=== PATIENT | female | born 1960 | race Caucasian/White ===

== ENCOUNTER 2016-07-23 12:21 | Emergency (ER) | payer OTHER ==
[~2016-07-23] VITALS: Ht 175.3 cm; Wt 72.6 kg
[2016-07-23 12:39] VITALS: BP 151/92
[2016-07-23] MEDS ORDERED: ACETAMINOPHEN EXTRA STRENGTH 500 MG TAB PO ONE ×3 (12:45→17:35)
--- NOTE | 2016-07-23 12:51 | NUR ---
PT TAKEN TO RADIOLOGY VIA W/C BY TECH.
[2016-07-23] MEDS ORDERED: ACETAMINOPHEN EXTRA STRENGTH 500 MG TAB ONE (12:54)
[2016-07-23] MEDS ORDERED: NACL 0.9% 1,000 ML IV SCH (17:31)
[2016-07-23] MEDS ORDERED: IBUPROFEN 600 MG TAB PO ONE (17:35)
[2016-07-23] MEDS ORDERED: HYDROmorphone 1 MG/ML AMP IVP ONE (17:35)
[2016-07-23] MEDS ORDERED: ONDANSETRON 4 MG/2 ML VIAL IVP ONE (17:35)
--- NOTE | 2016-07-23 17:35 | NUR ---
Patient transferred to bed 4 via wheelchair by tech, accompanied by family. RN evaluating patient at bedside.
--- NOTE | 2016-07-23 17:36 | NUR ---
Dr. Haley evaluating patient at bedside.
--- NOTE | 2016-07-23 17:42 | NUR ---
56/F TO ED WITH C/O LEFT KNEE PAIN X3 DAYS. DENIES TRAUMA. KNEE IS SWOLLEN. PAIN 10/10. LUNGS CLEAR BILAT. HR EVEN AND REGULAR. AAOX4. VSS. NO SIGNS OF DISTRESS.
[2016-07-23] MEDS ORDERED: LIDOCAINE 1% ED 50 ML ONE (17:58)
--- NOTE | 2016-07-23 18:08 | NUR ---
ERMD AT BEDSIDE DRAINING FLUID FROM KNEE
[2016-07-23 18:17] LABS: BASOPHILS # (AUTO) 0.2 K/uL (0.00-0.22); BASOPHILS % (AUTO) 1.8 % (0.0-2.0); EOSINOPHILS # (AUTO) 0.1 K/uL (0-0.4); EOSINOPHILS % (AUTO) 1.4 % (0.0-4.0); HEMATOCRIT 44.2 % (36-48); HEMOGLOBIN 14.4 g/dL (12.0-16.0); LYMPHOCYTES # (AUTO) 2.5 K/uL (2.5-16.5); LYMPHOCYTES % (AUTO) 25.6 % (20.5-51.1); MEAN CORPUSCULAR HEMOGLOBIN 29 pg (27-31); MEAN CORPUSCULAR HGB CONC 33 g/dL (33-37); MEAN CORPUSCULAR VOLUME 90 fL (80-94); MONOCYTES # (AUTO) 0.9 K/uL (0.8-1.0); MONOCYTES % (AUTO) 9.5 % (1.7-9.3); NEUTROPHILS # (AUTO) 5.9 K/uL (1.8-7.7); NEUTROPHILS % (AUTO) 61.7 % (42.2-75.2); PLATELET COUNT (AUTO) 269 K/uL (140-450); RED BLOOD CELL COUNT(AUTO) 4.91 MIL/uL (4.20-5.40); WHITE BLOOD COUNT (AUTO) 9.6 K/uL (4.8-10.8)
[2016-07-23 18:33] LABS: ANION GAP 14.8 (8-16); CARBON DIOXIDE 26.7 mmol/L (21-32); CREATININE 0.6 mg/dL (0.6-1.3); POTASSIUM 3.5 mmol/L (3.5-5.1)
[2016-07-23 18:39] LABS: INR 1.1 (0.8-1.2); PARTIAL THROMBOPLASTIN TIME 26.8 secs (22-35.6); PROTHROMBIN TIME 10.3 secs (10.8-13.4)
[2016-07-23 18:40] LABS: ALBUMIN 4.1 g/dL (3.4-5.0); TOTAL BILIRUBIN 0.6 mg/dL (0.0-1.0); TOTAL PROTEIN, SERUM 7.9 g/dL (6.4-8.2)
[2016-07-23 18:41] LABS: LACTIC ACID 0.8 mmol/L (0.4-2.0)
--- NOTE | 2016-07-23 18:50 | NUR ---
PT TAKEN TO RESTROOM VIA WHEELCHAIR
[2016-07-23 19:18] LABS: APPEARANCE,UNSPUN,BODY FLUID CLOUDY (CLEAR); SPECIMENTYPE,BODY FLUID SYNOVIAL
[2016-07-23 19:19] LABS: APPEARANCE,SPUN,BODY FLUID CLEAR (CLEAR); COLOR,BODY FLUID LT YELLOW (LT YELLOW); TOTAL VOLUME,BODY FLUID 40 mL
--- NOTE | 2016-07-23 19:24 | NUR ---
RECEIVED REPORT FROM CASEY SLOER.
[2016-07-23 19:37] LABS: RBC, BODY FLUID 20000 /cu. mm.; WBC, BODY FLUID 15100 /cu. mm.
[2016-07-23 19:52] LABS: APPEARANCE,URINE CLEAR (CLEAR); BILIRUBIN,URINE NEGATIVE (NEGATIVE); BLOOD, URINE 1+ (NEGATIVE); COLOR,URINE YELLOW (YELLOW); LEUKOCYTE ESTERASE ,URINE NEGATIVE (NEGATIVE); NITRITE, URINE NEGATIVE (NEGATIVE); PROTEIN,URINE NEGATIVE (NEGATIVE); UGLUCOSE NEGATIVE (NEGATIVE); UROBILINOGEN,URINE 0.2 EU/dL (0.2 - 1)
[2016-07-23 19:56] LABS: BACTERIA,URINE RARE /HPF (None Seen); MUCUS,URINE 1+ /LPF (None Seen); RBC,URINE 0-5 /HPF (0-5); SQUAMOUS EPITHELIAL CELL,UR 0-3 /LPF (0-3 (FEW)); WBC,URINE 0-3 /HPF (0-5)
[2016-07-23 20:05] LABS: POLYNUCLEAR, BODY FLUID 84 %
[2016-07-23 20:07] LABS: MONONUCLEAR, BODY FLUID 16 %
[2016-07-23 21:16] LABS: GLUCOSE,BODY FLUID 64 mg/dL
[2016-07-23 21:17] LABS: PROTEIN, BODY FLUID 3.3 g/dL
[2016-07-23] MEDS ORDERED: VANCOMYCIN PER PHARMACY MC PRN (22:25)
[2016-07-23] MEDS ORDERED: VANCOMYCIN 1GM/DEXT 5% PREMIX 200 ML IV ONE (22:25)
[2016-07-23] MEDS ORDERED: cefTRIAXone 1,000 MG VIAL ONE (22:36)
[2016-07-23] MEDS ORDERED: VANCOMYCIN 1,000 MG VIAL ONE (23:10)
--- NOTE | 2016-07-23 23:40 | NUR ---
REPORT GIVEN TO ANJEL SOLER OF [facility] ER.
[2016-07-24 00:06] VITALS: BP 136/72
--- NOTE | 2016-07-24 00:06 | NUR ---
Patient to be transferred to [facility]. Is being transferred due to NEED OF ORTHOPEDIC PHYSICIAN. Receiving facility has accepting physician and available space. ER physician has signed transfer form. Patient or responsible green party has agreed to transfer and signed form. Patient belongings inventoried and will be sent with patient. Copy of nursing notes, lab reports, EKG, Physicians Orders and X-rays to be sent with patient. Report called to ANJEL SOLER (ER) at receiving facility. [facility] ambulance service has been called for transfer. ETA is 45 MINS.
[2016-07-24 14:03] LABS: SYNOVIAL FLUID CRYSTALS None Seen (None Seen)
== END 2016-07-24 00:07 | disposition short-term general hospital (02) ==
LOC: MED 12:21
DX: M25.462 Effusion, left knee (principal); M17.12 Unilateral primary osteoarthritis, left knee; R50.9 Fever, unspecified; Z88.5 Allergy status to narcotic agent; Z90.49 Acquired absence of other specified parts of digestive tract; Z90.89 Acquired absence of other organs; F17.210 Nicotine dependence, cigarettes, uncomplicated
CPT/HCPCS: 20610; 36415; 73562; 80053; 81001; 82550; 82553; 82945; 83605; 83874; 84157; 84550; 85025; 85610; 85651; 85730; 86140; 87040; 87086; 87205; 89051; 93005; 96365; 96367; 96375; 99291; J0696; J1170; J2001; J2405; J3370; J7030; J7060